=== PATIENT | female | born 1995 | race Caucasian/White ===

== ENCOUNTER 2016-10-28 21:34 | Emergency (ER) | payer BC ==
[2016-10-28 22:19] VITALS: BP 115/55
[2016-10-28] MEDS ORDERED: Cephalexin CAP* 500 MG PO ONE ×2 (23:16→23:17)
[2016-10-28] MEDS ORDERED: Ondansetron ODT TAB* 4 MG PO ONE ×2 (23:17)
[2016-10-28] MEDS ORDERED: Acetaminophen TAB* 325 MG PO ONE (23:17)
--- NOTE | 2016-10-28 23:23 | UC ---
Throat Pain/Nasal Rui HPI - HPI Summary HPI Summary: 21 yo female with a three day hx os]f sore throat and fever headache myalgias nausea no cp of sob no v/d - History of Current Complaint Chief Complaint: UCGeneralIllness Stated Complaint: SORE THROAT/HEADACHE/CHILLS/FEVER/NAUSEA Time Seen by Provider: 10/28/16 23:10 Hx Obtained From: Patient Hx Last Menstrual Period: 10/06/16 Onset/Duration: Gradual Onset, Lasting Days Severity: Moderate Pain Intensity: 6 Pain Scale Used: 0-10 Numeric Cough: None - Epiglottits Risk Factors Epiglottis Risk Factors: Negative - Allergies/Home Medications Allergies/Adverse Reactions: Allergies Allergy/AdvReac Type Severity Reaction Status Date / Time No Known Allergies Allergy Verified 10/28/16 22:19 PMH/Surg Hx/FS Hx/Imm Hx Previously Healthy: Yes - Surgical History Surgical History: None - Family History Known Family History: Positive: Hypertension, Diabetes - Social History Alcohol Use: Weekly Substance Use Type: None Smoking Status (MU): Never Smoked Tobacco - Immunization History Most Recent Influenza Vaccination: March 2016 Review of Systems Constitutional: Fever, Chills, Fatigue Skin: Negative Eyes: Negative ENT: Sore Throat Respiratory: Negative Cardiovascular: Negative Gastrointestinal: Negative Genitourinary: Negative Motor: Negative Neurovascular: Negative Musculoskeletal: Myalgia Neurological: Headache Psychological: Negative All Other Systems Reviewed And Are Negative: Yes Physical Exam Triage Information Reviewed: Yes Appearance: Well-Appearing, No Pain Distress, Well-Nourished Vital Signs: Initial Vital Signs Temp 101.9 F 10/28/16 22:15 Pulse 117 10/28/16 22:15 Resp 16 10/28/16 22:15 BP 115/55 10/28/16 22:15 Pulse Ox 100 10/28/16 22:15 Vital Signs Reviewed: Yes Eyes: Positive: Conjunctiva Clear ENT: Positive: Hearing grossly normal, Pharyngeal erythema, Tonsillar swelling. Negative: Pharynx normal, Nasal congestion, Nasal drainage, Tonsillar exudate , Trismus, Muffled/hoarse voice Neck: Positive: Supple, Nontender, Enlarged Nodes @ - ant cervical Respiratory: Positive: Lungs clear, Normal breath sounds, No respiratory distress, No accessory muscle use Cardiovascular: Positive: RRR, No Murmur Abdomen Description: Positive: Nontender, No Organomegaly Musculoskeletal: Positive: Strength Intact, ROM Intact Neurological Exam: Normal Neurological: Positive: Alert Psychological Exam: Normal Skin Exam: Normal Throat Pain/Nasal Course/Dx - Course Course Of Treatment: pt advised she may need to be tested for MONO if not better in 3-4 days - Differential Dx/Diagnosis Provider Diagnoses: acute tonsillitis Discharge - Discharge Plan Condition: Stable Disposition: HOME Prescriptions: Cephalexin CAP* [Keflex 500 CAP*] 500 mg PO BID #18 cap Ondansetron TAB* [Zofran 4 MG Tab*] 4 mg PO Q6H PRN #10 tab PRN Reason: Nausea Patient Education Materials: Pharyngitis (ED) Forms: *School Release Referrals: No Primary Care Phys,NOPCP [Primary Care Provider] - Additional Instructions: rest fluids recheck in 3-4 days if not better
== END 2016-10-28 23:30 | disposition home or self-care (01) ==
LOC: UCCORT 21:34
DX: J03.90 Acute tonsillitis, unspecified (principal)
CPT/HCPCS: 87502; 87651; 99213; A9270-GY; G0463